=== PATIENT | male | born 1985 | race Caucasian/White ===

== ENCOUNTER 2023-11-28 21:39 | Emergency (ER) | payer OTHER, SELFPAY ==
[2023-11-28 21:43] VITALS: BP 143/81; PULSE 89; RESP 18; TEMP 37.2; O2SAT 99; BMI 22.9
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
--- NOTE | 2023-11-28 23:50 | DI.RAD.S_ITS ---
PROCEDURE: XR LUMBAR SPINE 2-3V INDICATIONS: increase in LBP TECHNIQUE: 3 views of the lumbar spine were acquired. COMPARISON: None. FINDINGS: Bones: 5 [id number] vertebrae are present. There is normal bony alignment. Moderate disc height loss at L5-S1. No vertebral body compression fractures. No suspicious bony lesions. Soft tissues: Overlying bowel gas pattern is normal. No suspicious soft tissue calcifications. IMPRESSION: Moderate disc height loss at L5-S1, may represent disc herniation. Dictated by: Gal Lawson M.D. on 11/29/2023 at 0:11 Approved by: Gal Lawson M.D. on 11/29/2023 at 0:11
[2023-11-29 00:38] VITALS: BP 122/74; PULSE 72; RESP 18; O2SAT 97
[2023-11-29] MEDS: predniSONE 20 MG TABLET PO (00:38)
== END 2023-11-29 00:45 | disposition home or self-care (01) ==
PROVIDERS: Emergency Provider Emergency Medicine; PCP Physician Assistant
DX: M54.50 Low back pain, unspecified (principal); Z87.828 Personal history of other (healed) physical injury and trauma
CPT/HCPCS: 51798; 72100; 81003; 99283

== ENCOUNTER → 2023-12-11 15:54 | Outpatient (CLI) | payer OTHER, SELFPAY ==
--- NOTE | 2023-12-11 15:56 | DI.MRI.S_ITS ---
PROCEDURE: MR LUMBAR SPINE WO CON INDICATIONS: concern for cauda equina TECHNIQUE: Noncontrast sagittal T1 spin echo and T2 fast echo, sagittal STIR, and T2 fast spin echo through the lumbar spine. In cases with scoliosis, additional coronal T2 fast spin echo may be performed. COMPARISON: [facility], CR, XR LUMBAR SPINE 2-3V, 11/28/2023, 23:53. FINDINGS: Image quality: Excellent. Alignment and Curvature: Mild straightening of the normal lumbar lordosis. No spondylolisthesis. Bone Marrow: Modic type 1 degenerative endplate changes at L5-S1. Marrow is of normal overall signal. No acute vertebral body compression fractures. Spinal Cord: Conus medullaris terminates at the L1 level. Visualized cord demonstrates normal signal and size. Paraspinous Soft Tissues: No paravertebral masses. T12-L1: Normal appearance. L1-L2: Normal appearance. L2-L3: Normal appearance. L3-L4: Normal appearance. L4-L5: Minimal diffuse disc bulge. Mild facet arthropathy. No central canal or neural foraminal stenosis. L5-S1: Disc desiccation height loss. Diffuse disc bulge. Annular tear. Facet arthropathy. No central canal stenosis. [id number] bilateral neural foraminal stenosis. IMPRESSION: Degenerative changes, most pronounced at L5-S1 with mild to moderate bilateral neural foraminal stenosis. Otherwise, no significant central canal or neural foraminal stenosis. Dictated by: Gal Lawson M.D. on 12/11/2023 at 16:55 Approved by: Gal Lawson M.D. on 12/11/2023 at 16:58
== END ==
PROVIDERS: PCP Physician Assistant; Referring Provider Physician Assistant; Visit Provider Physician Assistant
DX: M47.816 Spondylosis without myelopathy or radiculopathy, lumbar region (principal); M47.817 Spondylosis without myelopathy or radiculopathy, lumbosacral region; M48.07 Spinal stenosis, lumbosacral region; M51.37 Other intervertebral disc degeneration, lumbosacral region; M54.50 Low back pain, unspecified; R20.2 Paresthesia of skin; R19.8 Other specified symptoms and signs involving the digestive system and abdomen; Z87.828 Personal history of other (healed) physical injury and trauma
CPT/HCPCS: 72148

== ENCOUNTER → 2025-07-06 12:53 | Outpatient (CLI) | payer BC, SELFPAY ==
[2025-07-06 13:38] LABS: UR Morphine/Opiate cutoff 300 Negative (Negative); Ur Specific Gravity Normal (Normal); Urine MDMA Negative (Negative); Urine Methamphetamines Negative (Negative); Urine Tetrahydrocannabinol Negative (Negative)
[2025-07-06 13:39] LABS: Urine Tricyclic Antidepressant Negative (Negative)
== END ==
PROVIDERS: PCP Physician Assistant; Referring Provider Student in an Organized Health Care Education/Training Program; Visit Provider Student in an Organized Health Care Education/Training Program
DX: Z51.81 Encounter for therapeutic drug level monitoring (principal)
CPT/HCPCS: 80305

== ENCOUNTER → 2025-09-14 11:49 | Outpatient (CLI) | payer SELFPAY ==
[2025-09-14 15:24] LABS: Urine Chlamydia NOT DETECTED; Urine N gonorrhoeae NOT DETECTED
[2025-09-15 17:20] LABS: HIV 1 & 2 Ab/Ag 4th Gen Combo NEGATIVE (NEGATIVE); Hep C Virus Ab w/Reflex Quant NEGATIVE s/c (NEGATIVE)
== END ==
PROVIDERS: PCP Physician Assistant; Referring Provider Physician Assistant; Visit Provider Chiropractor
DX: Z11.3 Encounter for screening for infections with a predominantly sexual mode of transmission (principal)
CPT/HCPCS: 36415; 86592; 86803; 87350; 87389; 87491; 87529; 87591